=== PATIENT | male | born 1975 | race Caucasian/White ===

== ENCOUNTER 2025-09-02 10:27 | Outpatient (CLI) | payer BC, SELFPAY ==
--- NOTE | ~2025-09-02 | MR_ITS ---
EXAMINATION: MRI lumbosacral spine without contrast DATE: 09/02/2025. INDICATION: Previous history of surgery at L5-S1 level. Cauda equina syndrome. TECHNIQUE: Axial, coronal and sagittal images including T1, T2 and inversion recovery were obtained. COMPARISON: None previous available FINDINGS: No acute or focal bone changes of lumbar vertebrae are seen. Conus terminates at T12-L1 level. The cauda structures are normal. At L1-2 disc level, no focal disc lesions. At L2-3 level, mild degenerative disc disease and facet arthropathy causing mild compromise of both lateral recesses. At L3-4 level, no focal disc lesions. At L4-5 level, degenerative disc disease with asymmetric bulging annulus to the left with facet arthropathy causing mild to moderate compromise of left lateral recess and neural foramen. At L5-S1 level, postsurgical changes are noted. No recurrent disc herniation. No significant foraminal narrowing is seen. Posterior fixation hardware are noted. Paravertebral soft tissues are unremarkable. IMPRESSION: 1. No acute or focal bone changes of lumbar vertebrae. Postsurgical changes at L5-S1 level as described above. 2. No abnormalities of the cauda. Conus terminates at T12-L1 level. 3. Mild degenerative changes at multiple levels as described above. Reviewed, dictated and finalized at location [facility]
== END 2025-09-02 10:28 | disposition home or self-care (01) ==
LOC: GOSHIMG 10:28
PROVIDERS: PCP Nurse Practitioner Family; Visit Provider Nurse Practitioner Family
DX: G95.81 Conus medullaris syndrome (principal); M51.369 Other intervertebral disc degeneration, lumbar region without mention of lumbar back pain or lower extremity pain; M51.379 Other intervertebral disc degeneration, lumbosacral region without mention of lumbar back pain or lower extremity pain; Z98.1 Arthrodesis status
CPT/HCPCS: 72148